=== PATIENT | male | born 1965 | race Caucasian/White ===

== ENCOUNTER → 2019-05-25 | Outpatient (CLI) | payer BC | END | disposition home or self-care (01) | LOC: LABWHC1 15:51 | PROVIDERS: ATTEND Surgery Plastic and Reconstructive Surgery | DX: Z01.810 Encounter for preprocedural cardiovascular examination (principal) | CPT/HCPCS: 36415; 93005 ==

== ENCOUNTER → 2019-06-09 | Outpatient (CLI) | payer BC ==
[2019-06-09 16:12] LABS: HCT 43.9 % (39.0-53.0); HGB 14.2 gm/dL (13.0-17.5); MCH 29.4 pg (25.0-35.0); MCHC 32.3 g/dL (31.0-37.0); MCV 91.1 fL (80.0-100.0); Platelet Count 297 k/uL (150-450); RBC 4.82 m/uL (4.30-5.90); RDW 12.8 % (11.5-15.5); WBC 5.4 k/uL (3.8-10.6)
== END | disposition home or self-care (01) ==
LOC: LABPAT 15:40
PROVIDERS: ATTEND Surgery Plastic and Reconstructive Surgery
DX: Z01.812 Encounter for preprocedural laboratory examination (principal); I48.91 Unspecified atrial fibrillation
CPT/HCPCS: 36415; 85027

== ENCOUNTER 2019-06-11 06:18 | Day surgery (SDC) | payer BC ==
[2019-06-09 15:18] VITALS: BMI 25.1
--- NOTE | 2019-06-10 17:09 | P.GSHP ---
History of Present Illness H&P Date: 06/11/19 CHIEF COMPLAINT: Inguinal hernia, right. HISTORY OF PRESENT ILLNESS: The patient is a 53-year-old male who presents with a history of swelling and pain along the right groin. He has noted increased swelling including pain of the area. He has previous history of repair along the right side. Now he presents for repair of his inguinal hernia. PAST MEDICAL HISTORY: Please see list. PAST SURGICAL HISTORY: Please see list. MEDICATIONS: Please see list. ALLERGIES: Please see list. SOCIAL HISTORY: No illicit drug use FAMILY HISTORY: No reports of Crohn disease or ulcerative colitis. REVIEW OF ORGAN SYSTEMS: CONSTITUTIONAL: No reports of fevers or chills. No reports of weight loss despite prior attempts. GI: Denies any blood in stools or constipation. PHYSICAL EXAM: VITAL SIGNS: Stable GENERAL: Well-developed pleasant in no acute distress. HEENT: No scleral icterus. Extraocular movements grossly intact. Moist buccal mucosa. NECK: Supple without lymphadenopathy. CHEST: Unlabored respirations. Equal bilateral excursions. CARDIOVASCULAR: Regular rate and rhythm. Distal 2+ pulses. ABDOMEN: Soft, nondistended. No peritoneal signs. Right inguinal hernia. Previous. Left inguinal hernia MUSCULOSKELETAL: No clubbing, cyanosis, or edema. ASSESSMENT: 1. Inguinal hernia, right initial and symptomatic. 2. Prior left inguinal hernia repair PLAN: 1. Recommend proceeding robotic inguinal repair with mesh with possible bilateral approach. 2. Benefits and risks of surgical intervention was discussed including possibility of open technique. 3. DVT prophylaxis. 4. Antibiotic prophylaxis. Past Medical History Past Medical History: Hyperlipidemia, Hypertension, Osteoarthritis (OA) History of Any Multi-Drug Resistant Organisms: None Reported Past Surgical History: Hernia Repair, Orthopedic Surgery Additional Past Surgical History / Comment(s): Right shoulder surgery, arthroscopies on right knee, right ankle fracture with pins placed. Past Anesthesia/Blood Transfusion Reactions: No Reported Reaction Past Psychological History: Anxiety, Depression Smoking Status: Never smoker Past Alcohol Use History: None Reported Past Drug Use History: None Reported - Past Family History Mother Family Medical History: Cancer Medications and Allergies Home Medications Medication Instructions Recorded Confirmed Type ALPRAZolam [ALPRAZolam XR] 0.5 mg PO DAILY 06/09/19 06/09/19 History Atorvastatin [Lipitor] 20 mg PO DAILY 06/09/19 06/09/19 History Ibuprofen [Motrin Ib] 400 mg PO QA 06/09/19 06/09/19 History Lisinopril [Prinivil] 5 mg PO QAM 06/09/19 06/09/19 History buPROPion HCL [buPROPion HCL SR] 150 mg PO BID 06/09/19 06/09/19 History Allergies Allergy/AdvReac Type Severity Reaction Status Date / Time No Known Allergies Allergy Verified 06/09/19 15:18
[~2019-06-11 06:18] MED LIST: ACETAMINOPHEN TAB 500 MG TAB PO STA; GABAPENTIN 300 MG CAP PO STA; HEPARIN SODIUM,PORCINE 5,000 UNIT/ML 1 ML VIAL SQ ONE; HYDROmorphone 0.5 MG/0.5 ML SYRINGE IVP PRN; TAMSULOSIN 0.4 MG CAP.ER.24H PO STA; fentaNYL (PF) 50 MCG/ML 2 ML AMP IV PRN
[2019-06-11 06:38] VITALS: RESP 16
[2019-06-11] MEDS: LIDOCAINE 1% 20 ML VIAL (10MG/ML) FOR IV START INTRADERMA PRN ×2 (06:40→06:45)
[2019-06-11] MEDS: LACTATED RINGERS 1,000 ML IV SCH (06:46)
[2019-06-11] MEDS ORDERED: MIDAZOLAM 2 MG/2 ML VIAL IV ONE (07:11)
[2019-06-11] MEDS ORDERED: fentaNYL (PF) 50 MCG/ML 2 ML AMP IV ONE (07:11)
[2019-06-11] MEDS ORDERED: ONDANSETRON 4 MG/2 ML VIAL IVP ONE (07:38)
[2019-06-11] MEDS ORDERED: DEXAMETHASONE SOD PHOSPHATE 10 MG/ML 1 ML VIAL IV ONE (07:38)
--- NOTE | 2019-06-11 07:53 | P.ANPRN ---
Procedure Note - Anesthesia - Nerve Block Performed Bilateral Transversus Abdominis Single Time Out Performed: Yes Date of Procedure: 06/11/19 Procedure Start Time: :10 Procedure Stop Time: : Location of Patient: PreOp Indication: Acute Post-Operative Pain, Dx/Pain Location, Requested by Surgeon Sedation Type: Sedate with meaningful contact maintained Preparation: Sterile Prep Position: Supine Catheter: None Needle Types: Pajunk Needle Gauge: 21 Ultrasound used to visualize needle placement: Yes Ultrasound used to observe medication spread: Yes Injectate: Other (see comment) (10ml 0.5% Ropivacaine + 10ml 2% Lidocaine 1:200,000 each side) Blood Aspirated: No Pain Paresthesia on Injection Noted: No Resistance on Injection: Normal Image Stored and Saved: Yes Events: Uneventful and Well Tolerated
[2019-06-11] MEDS ORDERED: PROPOFOL 10 MG/ML 20 ML VIAL IV ONE (07:54)
[2019-06-11] MEDS ORDERED: LIDOCAINE 1% INJ 10MG/ML (20 ML MDV) ONE (07:54)
[2019-06-11] MEDS ORDERED: LIDOCAINE 2%-EPI 1:100,000 20 ML VIAL ONE (07:54)
[2019-06-11] MEDS ORDERED: ROPIVACAINE 5 MG/ML 30 ML VIAL ONE (07:54)
[2019-06-11] MEDS ORDERED: DEXAMETHASONE SOD PHOSPHATE 4 MG/ML 1 ML VIAL ONE (07:54)
[2019-06-11] MEDS ORDERED: NEOSTIGMINE 1 MG/ML 10 ML VIAL ONE (07:54)
[2019-06-11] MEDS ORDERED: GLYCOPYRROLATE 0.2 MG/ML 2 ML VIAL ONE (07:54)
[2019-06-11] MEDS ORDERED: MIDAZOLAM 2 MG/2 ML VIAL ONE (07:54)
[2019-06-11] MEDS ORDERED: ROCURONIUM BROMIDE 10 MG/ML 5 ML VIAL IV ONE (07:54)
[2019-06-11] MEDS ORDERED: fentaNYL (PF) 50 MCG/ML 2 ML AMP ONE (07:54)
[2019-06-11] MEDS ORDERED: LIDOCAINE 1%-EPI 1:100,000 20 ML VIAL SQ ONE (07:54)
[2019-06-11] MEDS ORDERED: LACTATED RINGERS 1,000 ML IV ONE (09:08)
--- NOTE | 2019-06-11 09:24 | P.OP ---
Date of Procedure: 06/11/19 Description of Procedure: SURGEON: GLORIA WALL MD PREOPERATIVE DIAGNOSES: 1. Initial right inguinal hernia. 2. Previous history of left inguinal hernia 3. Hypertensive heart disease 4. Generalized anxiety disorder 5. Depressive disorder 6. Hyperlipidemia POSTOPERATIVE DIAGNOSES: 1. Initial right inguinal hernia, indirect, Nyhus II 2. Previous history of left inguinal hernia 3. Hypertensive heart disease 4. Generalized anxiety disorder 5. Depressive disorder 6. Hyperlipidemia OPERATION: 1. Robotic-assisted da Camille Xi laparoscopic right inguinal hernia repair with mesh, 11.[address] ANESTHESIA: General with local anesthetic ESTIMATED BLOOD LOSS: 5 mL. SPECIMENS REMOVED: Right inguinal hernia sac COMPLICATIONS: None. FINDINGS: 1. Nyhus type II indirect inguinal hernia, reducible, initial, 2 cm 2. Non-absorbable 2-0 VLOC used 3. No recurrence along the left side. INDICATIONS: The patient is a 53-year-old gentleman who presents with history of right groin pain. Now presents for definitive surgical intervention. Laparoscopic versus open and robotic approaches were discussed. Benefits and risks including bleeding, infection, injury to the vas deferens as well as sterility and chronic groin pain were reviewed. Placement of mesh was also described. Informed consent was obtained. DESCRIPTION: In the preoperative area, the patient was marked with indelible marker along the inguinal hernia. The patient was brought to the operating room and initially laid in supine position. The abdomen had been prepped and draped in standard sterile fashion. Ioban draping was also placed. Prior to incision, a timeout protocol was confirmed with surgical team regarding patient's name including procedures to be performed and location along the right groin. Initial positioning for the robotic assisted ports were selected whereby 20 cm superior to the target anatomy, 0 degree 5 mm laparoscopic trocar entry was performed at the left upper quadrant. The abdomen was insufflated to 15 mmHg which he had tolerated well. Diagnostic laparoscopy demonstrated a indirect inguinal hernia along the right groin. Next, along the epigastrium, 8 mm robot trocar was placed. An 8-mm robotic trocar was placed under direct visualization at the right upper quadrant. An 8 mm port was placed at the left upper quadrant. All trocars were positioned between 8 to 10-cm apart from each other. The [employer] XI robot was primed, draped, prepared for docking along the right side of the patient. The patient was placed in Trendelenberg position 16-degrees. I then went to the [employer] Xi console. The surgical first assistant was at bedside for exchange of the robot arms and equipment. No hernia was identified along the left groin. The right inguinal hernia sac was evaginated whereby the peritoneum was scored using Endo scissors with caute ry. Once completely reduced into the abdominal cavity, the peritoneal sac of the hernia was stripped along an indirect inguinal hernia with a another The sac was resected and then passed off for further pathological analysis. The size of the hernia defect was 2 cm with intraoperative films obtained. Using a 2-0 VLOC, the peritoneal defect of the right inguinal hernia site was closed using a running suture. The defect was found to be completely closed with complete reduction of the right direct inguinal hernia was confirmed. As an onlay, an 11.[address] mesh by [employer] was initially cut in half and entered into the abdominal cavity via the 8 mm trocar. The mesh was tacked to the pelvis using 2-0 VLOC 9-inch length sutures. The robot was undocked from the patient's bedside. I then rescrubbed into the case. Insufflation was released from the abdominal cavity and all instruments were removed from the abdominal cavity. The rest of incisions were reapproximated using 4-0 Monocryl in a running subcuticular fashion. Local anesthetic was placed along the incision including for a right groin block. Incisions were cleansed using dilute hydrogen peroxide. Liquid glue was applied to the skin. At the end of the procedure, the needle, sponge and instrument counts had been verified correct by the surgical services tech. The patient had tolerated the procedure well and was taken to the postanesthesia care unit in stable condition. Plan - Discharge Summary Discharge Rx Participant: No New Discharge Prescriptions: New Tamsulosin [Flomax] 0.4 mg PO DAILY #5 cap.er.24h Ibuprofen [Motrin] 600 mg PO Q8HR PRN #30 tab PRN Reason: Pain Acetaminophen Tab [Tylenol Tab] 1,000 mg PO Q6HR PRN #30 tablet Continue ALPRAZolam [ALPRAZolam XR] 0.5 mg PO DAILY Atorvastatin [Lipitor] 20 mg PO DAILY buPROPion HCL [buPROPion HCL SR] 150 mg PO BID Lisinopril [Prinivil] 5 mg PO QAM Discontinued Ibuprofen [Motrin Ib] 400 mg PO QAM Discharge Medication List ALPRAZolam [ALPRAZolam XR] 0.5 mg PO DAILY 06/09/19 [History] Atorvastatin [Lipitor] 20 mg PO DAILY 06/09/19 [History] Lisinopril [Prinivil] 5 mg PO QAM 06/09/19 [History] buPROPion HCL [buPROPion HCL SR] 150 mg PO BID 06/09/19 [History] Acetaminophen Tab [Tylenol Tab] 1,000 mg PO Q6HR PRN #30 tablet 06/11/19 [Rx] Ibuprofen [Motrin] 600 mg PO Q8HR PRN #30 tab 06/11/19 [Rx] Tamsulosin [Flomax] 0.4 mg PO DAILY #5 cap.er.24h 06/11/19 [Rx] Follow up Appointment(s)/Referral(s): Gloria Wall MD [STAFF PHYSICIAN] - 06/15/19 Patient Instructions/Handouts: Laparoscopic Herniorrhaphy (DC), Inguinal Hernia Repair (GEN) Activity/Diet/Wound Care/Special Instructions: No lifting over 4 pounds in 4 weeks until Jul 09. August shower. No bath tub soaks for two weeks until Jun 25tth. Diet as tolerated. Use Tylenol and ibuprofen scheduled for the next 24-48 hours for best pain relief. Use ice along incisions for the today to prevent swelling. Discharge Disposition: HOME SELF-CARE
[2019-06-11 09:28] VITALS: TEMP 97
[2019-06-11] MEDS ORDERED: IBUPROFEN 200 MG TAB PO ONE (10:24)
[2019-06-11 11:07] VITALS: BP 116/67; PULSE 71
== END 2019-06-11 12:24 | disposition home or self-care (01) ==
LOC: OR 06:18
PROVIDERS: ATTEND Surgery Plastic and Reconstructive Surgery
DX: K40.90 Unilateral inguinal hernia, without obstruction or gangrene, not specified as recurrent (principal); I11.9 Hypertensive heart disease without heart failure; M19.90 Unspecified osteoarthritis, unspecified site; F41.1 Generalized anxiety disorder; F32.9 Major depressive disorder, single episode, unspecified; E78.5 Hyperlipidemia, unspecified; Z87.19 Personal history of other diseases of the digestive system; Z98.890 Other specified postprocedural states; Z87.81 Personal history of (healed) traumatic fracture; Z79.899 Other long term (current) drug therapy; Z79.1 Long term (current) use of non-steroidal anti-inflammatories (NSAID); Z80.9 Family history of malignant neoplasm, unspecified
CPT/HCPCS: 49650; S2900; 64488; 88302

== ENCOUNTER 2023-07-18 06:50 | Day surgery (SDC) | payer BC ==
[~2023-07-18 06:50] MED LIST changes: -ACETAMINOPHEN TAB 500 MG TAB PO STA; -GABAPENTIN 300 MG CAP PO STA; -HEPARIN SODIUM,PORCINE 5,000 UNIT/ML 1 ML VIAL SQ ONE; -HYDROmorphone 0.5 MG/0.5 ML SYRINGE IVP PRN; +LIDOCAINE 1% (10MG/ML) FOR IV START INTRADERMA PRN; -TAMSULOSIN 0.4 MG CAP.ER.24H PO STA; -fentaNYL (PF) 50 MCG/ML 2 ML AMP IV PRN
[2023-07-18] MEDS: LACTATED RINGERS 1,000 ML IV SCH (07:30)
[2023-07-18 07:43] VITALS: RESP 16; TEMP 97.6
[2023-07-18] MEDS ORDERED: PROPOFOL 10 MG/ML 20 ML VIAL IV ONE (08:25)
--- NOTE | 2023-07-18 08:48 | P.PCN ---
Date of Procedure: 07/18/23 Procedure(s) Performed: BRIEF HISTORY: Patient is a 58-year-old pleasant white male scheduled for an elective colonoscopy as a part of screening for colon cancer. PROCEDURE PERFORMED: Colonoscopy with snare polypectomy. PREOPERATIVE DIAGNOSIS: Screening for colon cancer. IV sedation per Anesthesia. PROCEDURE: After informed consent was obtained, the patient, was brought into the endoscopy unit. IV sedation was administered by Anesthesia under continuous monitoring. Digital rectal examination was normal. Initially the Olympus CF-160 flexible video colonoscope was then inserted in the rectum, gradually advanced into the cecum without any difficulty. Careful examination was performed as the scope was gradually being withdrawn. Ileocecal valve and the appendiceal orifice were visualized and appeared normal. Prep was excellent. Mucosa of the cecum, ascending colon appeared normal. In the transverse colon there was a 5 mm and a 7 mm polyp that was removed by cold snare polypectomy. In the descending colon there was a 3 mm and 5 limited polyp removed by cold snare polypectomy. Rest of the, transverse colon, descending colon, sigmoid colon, and rectum appeared normal. Retroflexion was performed in the rectum and no lesions were seen. The patient tolerated the procedure well. IMPRESSION: 5 mm and 7 mm transverse colon polyp status post snare polypectomy 3 mm and 5 mm descending colon polyp status post cold snare polypectomy RECOMMENDATIONS: Findings of this examination were discussed with the patient as well as a family. He was advised to follow with the biopsy results. If the biopsy result adenoma he can have a repeat colonoscopy in 5 years..
[2023-07-18 09:32] VITALS: BP 117/67; PULSE 65
== END 2023-07-18 09:26 | disposition home or self-care (01) ==
LOC: ORWHC2ENDO 06:50
PROVIDERS: ATTEND Internal Medicine Gastroenterology
DX: Z12.11 Encounter for screening for malignant neoplasm of colon (principal); D12.4 Benign neoplasm of descending colon; D12.3 Benign neoplasm of transverse colon; I10 Essential (primary) hypertension; E78.5 Hyperlipidemia, unspecified; F41.9 Anxiety disorder, unspecified; F32.A Depression, unspecified; Z79.899 Other long term (current) drug therapy; Z90.49 Acquired absence of other specified parts of digestive tract; Z98.890 Other specified postprocedural states
CPT/HCPCS: 45385; J2704; 88305